=== PATIENT | female | born 1940 ===

== ENCOUNTER → 2024-08-02 | Emergency (ER) | payer BC, OTHER ==
[~2024-08-02] MED LIST: ACETAMINOPHEN 500 MG TAB ONE; ASPIRIN 325 MG TAB ONE; ATROPINE SULF 1 MG/10 ML SYR IV ONE; CLOPIDOGREL 75 MG TABLET ONE; DIAZEPAM 2 MG TABLET ONE; DILTIAZEM HCL 60 MG TAB PO ONE; ENOXAPARIN 40 MG/0.4 ML SQ ONE; FENTANYL CITR 100 MCG/2 ML ONE; HEPA 1000U/500MLS 2,000 UNIT/1,000 ML BAG IV ONE; HEPARIN 10,000 UNIT/10 ML VIAL IV ONE; HEPARIN 5000 UNIT/ML 1 ML VIAL ONE; LIDOCAINE 1% 20 ML MDV ONE; MIDAZOLAM HCL 2 MG/2 ML INJ ONE; MORPHINE 2 MG/ML SYR ONE; NA CHLORIDE 0.9% 1,000 ML ONE; NA CHLORIDE 0.9% 100 ML ONE; NA CHLORIDE 0.9% 500 ML ONE; NITROGLYCERIN/D5W 50 MG/250 ML BTL IV ONE; NOREPINEPHRINE BITARTRATE/D5W 4 MG/250 ML KIT IV ONE; ONDANSETRON 4 MG/2 ML VIAL ONE; Phenylephrine HCl 10 MG/ML 1 ML VIAL ONE; TICAGRELOR 90 MG TABLET PO ONE; dilTIAZem HCL 25 MG/5 ML VIAL IV ONE
[2024-08-02 06:31] LABS: Absolute Basophils 0.1 K/uL (0-0.5); Absolute Lymphocytes (CBC) 2.1 K/uL (0.7-4.9); Absolute Monocytes 0.5 K/uL (0.1-1.3); Absolute Neutrophil 10.5 K/uL (1.8-8.0); Basophils % 0.6 % (0-1.3); Hematocrit 31.1 % (36.0-45.0); Hemoglobin 10.7 g/dL (12.0-15.0); Lymphocytes % 16.1 % (15.3-44.8); MCH 31.7 pg (27.0-35.0); MCHC 34.6 g/dL (32.0-36.0); MCV 91.8 fL (80-100); MPV 8.6 fL (7.6-11.3); Monocytes % 3.8 % (3.3-12.3); Neutrophils % 79.5 % (41.7-73.7); Platelets 468 thou/uL (152-406); RBC Red Blood Cell Count 3.39 M/uL (3.86-4.86); Red Cell Distribution Width 12.7 % (12.1-15.2)
[2024-08-02 06:52] LABS: PT Prothrombin Time 19.8 SECONDS (9.4-12.5); Protime INR 1.9
[2024-08-02 07:37] LABS: ALT/SGPT 34 U/L (13-56); AST/SGOT 74 U/L (15-37); Albumin 2.6 g/dL (3.4-5.0); Albumin/Globulin Ratio 0.7 (1.1-1.8); Alkaline Phosphatase 115 U/L (45-117); Anion Gap 13.6 mEq/L (5.0-15.0); BUN Blood Urea Nitrogen 19 mg/dL (7-18); Bicarbonate 21 mEq/L (21-32); Bilirubin Total 0.3 mg/dL (0.2-1.0); Globulin 3.6 g/dL (2.3-3.5); Glomerular Filtration Rate 45 ml/min (=/>90); Glucose Level 154 mg/dL (74-106); Magnesium 1.8 mg/dL (1.6-2.4); NT PRO-BNP 34474 pg/mL (<450); Potassium 4.6 mEq/L (3.5-5.1); Protein, Total 6.2 g/dL (6.4-8.2); Sodium Level 127 mEq/L (136-145)
[2024-08-02 07:39] LABS: Bilirubin Direct < 0.2 mg/dL (0-0.2); Bilirubin Indirect, Calculated 0.1 mg/dL (0.2-0.8)
[2024-08-02 07:40] LABS: Troponin High Sensitivity 7573.8 pg/mL (<58.9)
--- NOTE | 2024-08-02 08:23 | RAD REPORT ---
EXAM: CTA of the chest, abdomen and pelvis HISTORY: Chest and abdominal pain COMPARISON: None TECHNIQUE: Multiple contiguous axial images were obtained a CTA of the chest and abdomen with contras t per aortic dissection protocol. Sagittal and coronal 3-D MIP reformats were performed. 100 cc Isovue-370 administered intravenously.Automated exposure control, adjustment of the mA and kV accordi ng to the patient size, and iterative reconstruction. Unless otherwise specified, incidental findings do not require dedicated imaging follow-up. FINDINGS: An aortic dissection not seen. No aortic aneurysm Hgppf-wj-cckqltor bilateral pleural effusions with basilar atelectasis. 4 cm right upper lobe opacity extending to the pleura. Smaller additional right upper lobe opacity. 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 SMA and ANTOINE are patent. Renal arteries do not demonstrate a significant abnormality. Cholelithiasis. Gallbladder wall does not appear thickened. Liver has a heterogeneous density. The evaluation is somewhat limited as the arms are down by his yolande e. The pancreas, adrenals, kidneys and bladder do not demonstrate a significant abnormality No evidence of diverticulitis. Spondylosis lumbar spine results in spinal stenosis. No adnexal mass IMPRESSION: No evidence of an aortic dissection Wuodg-hx-vjvcmpbu bilateral pleural effusions Right upper lobe lung opacities probably pneumonia. This should be followed until has cleared to excl ude a postobstructive process/underlying mass. Heterogeneous liver. It is recommended that patient ultrasound for evaluation.
--- NOTE | 2024-08-02 08:34 | RAD REPORT ---
Procedure: Chest Single View HISTORY: Chest pain COMPARISON: none FINDINGS: Patchy right upper lobe opacities Bibasilar atelectasis Small to moderate pleural effusions The heart is moderately enlarged. IMPRESSION: Ucojf-gu-bvybqfnn bilateral pleural effusions Patchy right upper lobe opacities probably pneumonia. This should be followed until has cleared to he lp exclude a postobstructive process/underlying mass
--- NOTE | 2024-08-02 08:46 | EDPHYS ---
Physician Documentation [facility] Name: Jessica Queen Age: 84 yrs Sex: Female : 1940 Arrival Date: 08/02/2024 Time: 06:06 Bed 4 Private MD: ED Physician Alek Davila HPI: 08/02 06:12 This 84 yrs old Female presents to ER via Unassigned with complaints of gen sp4 weakness . 06:23 84-year-old female presents with complaint of generalized weakness discomfort nausea sp4 and also stating she may be dehydrated. Patient states she does not go to the doctor. Historical: - Allergies: 06:52 Tylenol; dd2 06:52 Sulfa (Sulfonamide Antibiotics); dd2 06:52 Latex, Natural Rubber; dd2 - PMHx: 06:52 None; dd2 - PSHx: 06:52 None; dd2 - Immunization history:: Adult Immunizations up to date. - Infectious Disease History:: Denies. - Family history:: not pertinent. - Social history:: Smoking status: Patient denies any tobacco usage or history of. ROS: 06:23 Constitutional: Negative for fever, chills, and weight loss, positive generalized sp4 weakness, positive diffuse discomfort, positive for feeling unwell, positive nausea 06:23 All other systems are negative, Exam: 06:23 Constitutional: This is a well developed, well nourished patient who is awake, alert, sp4 patient is elderly female who is ill-appearing pale appearing but nontoxic. Head/Face: Normocephalic, atraumatic. Eyes: Pupils equal round and reactive to light, extra-ocular motions intact. Lids and lashes normal. Conjunctiva and sclera are not injected. Cornea within normal limits. Periorbital areas with no swelling, redness, or edema. ENT: Nares patent. No nasal discharge, no septal abnormalities noted. Tympanic membranes are normal and external auditory canals are clear. Oropharynx with no redness, swelling, or masses, exudates, or evidence of obstruction, uvula midline. Mucous membranes moist. Neck: Trachea midline, no thyromegaly or masses palpated, and no cervical lymphadenopathy. Supple, full range of motion without nuchal rigidity, or vertebral point tenderness. Chest/axilla: Normal chest wall appearance and motion. Nontender with no deformity. No lesions are appreciated. Cardiovascular: Irregularly irregular tachycardia, no murmurs, or rubs. Normal PMI, no JVD. No pulse deficits. Respiratory: Lungs have equal breath sounds bilaterally, clear to auscultation and percussion. No rales, rhonchi or wheezes noted. No increased work of breathing, no retractions or nasal flaring. Abdomen/GI: Soft, with normal bowel sounds. No distension or tympany. No guarding or rebound. No evidence of tenderness throughout. Back: No spinal tenderness. No costovertebral tenderness. Skin: Warm, dry with normal turgor. Normal color with no rashes, no lesions, and no evidence of cellulitis. MS/ Extremity: Pulses equal, no cyanosis. Neurovascular intact. Full, normal range of motion. Neuro: Awake and alert, GCS 15, oriented to person, place, time, and situation. Cranial nerves II-XII grossly intact. Motor strength 5/5 in all extremities. Sensory grossly intact. Psych: Awake, alert, with orientation to person, place and time. Behavior, mood, and affect are within normal limits 06:23 ECG was reviewed by the Attending Physician. EKG at 06:18 atrial fibrillation with RVR. EKG reveals atrial fibrillation at the rate of [address] depressions leads V1, V2, V3 Vital Signs: 06:51 BP 112 / 95; Pulse 104; Resp 17; Temp 98.5; Pulse Ox 95% on R/A; Weight 84.82 kg; Pain dd2 10/10; 09:44 BP 91 / 56; Pulse 85; Resp 16; Pulse Ox 95% ; bp 06:51 Pain Scale: Adult dd2 NIH Stroke Scale Scores: 06:23 NIHSS Score: 0 sp4 Monica Coma Score: 06:23 Eye Response: spontaneous(4). Motor Response: obeys commands(6). Verbal Response: sp4 oriented(5). Total: 15. 06:59 Eye Response: spontaneous(4). Motor Response: obeys commands(6). Verbal Response: dd2 oriented(5). Total: 15. MDM: 06:15 Medical Screening Exam initiated sp4 06:33 Differential Diagnosis altered mental status, sepsis, flu, Arrhythmia. Data reviewed: sp4 vital signs, nurses notes, lab test result(s), EKG, radiologic studies, plain films. Consideration of Admission/Observation Patient was admitted/placed on observation. Escalation of care including admission/observation considered. Transition of care: After a detail discussion of the patient's case, care is transferred to Alek Davila DO. 07:49 ED course: Patient care/ report received from Dr Salazar. Patient with widened ms3 mediastinum, a fib RVR. Pending CT aorta.. 07:53 Transition of care: Care assumed from Iker Salazar MD. ms3 08:11 ED course: Discussed case with Dr Wilson and he will see patient.. ms3 08:26 Management of patient was discussed with the following: Hospitalist: Dr Funk- Patient ms3 may need transfer as ICU beds not available.. 09:00 ED course: Discussed resuscitation wishes with patient and her son, Alex Botello. Patient ms3 wishes to be DNR.. 09:21 ED course: Dr Wilson has seen patient and will take patient to the [facility]. ms3 09:30 I considered the following discharge prescriptions or medication management in the ms3 emergency department Medications were administered in the Emergency Department. See MAR. Independent interpretation of the following test(s) in the Emergency Department EKG: See my EKG interpretation above. Counseling: I had a detailed discussion with the patient and/or guardian regarding the historical points, exam findings, and any diagnostic results supporting the discharge/admit diagnosis, lab results, radiology results, the need for further work-up and treatment in the hospital. 20:29 ED course: CTA follow up - FINDINGS: An aortic dissection not seen. No aortic aneurysm sp4 Wsinx-oh-nnqzncwp bilateral pleural effusions with basilar atelectasis. 4 cm right upper lobe opacity extending to the pleura. Smaller additional right upper lobe opacity. 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 SMA and ANTOINE are patent. Renal arteries do not demonstrate a significant abnormality. Cholelithiasis. Gallbladder wall does not appear thickened. Liver has a heterogeneous density. The evaluation is somewhat limited as the arms are down by his side. The pancreas, adrenals, kidneys and bladder do not demonstrate a significant abnormality No evidence of diverticulitis. Spondylosis lumbar spine results in spinal stenosis. No adnexal mass IMPRESSION: RADIOLOGY SERVICES REPORT (Continued) Name: JESSICA QUEEN CC: NONE; Iker Salazar MD, LANETTE BROOKS / Report: [id number] Radiology Services Report Page 2 of 2 No evidence of an aortic dissection Rdcns-da-utlnuzap bilateral pleural effusions Right upper lobe lung opacities probably pneumonia. This should be followed until has cleared to exclude a postobstructive process/underlying mass. Heterogeneous liver. It is recommended that patient ultrasound for evaluation. . 08/02 06:13 Order name: Basic Metabolic Panel; Complete Time: 07:41 sp4 08/02 06:13 Order name: CBC with Diff; Complete Time: 07:11 sp4 08/02 06:13 Order name: LFT's; Complete Time: 07:41 sp4 08/02 06:13 Order name: Magnesium; Complete Time: 07:41 sp4 08/02 06:13 Order name: NT PRO-BNP; Complete Time: 07:41 sp4 08/02 06:13 Order name: PT-INR; Complete Time: 07:11 sp4 08/02 06:13 Order name: Troponin HS; Complete Time: 07:41 sp4 08/02 06:14 Order name: Influenza Screen (a \T\ B); Complete Time: 07:11 sp4 08/02 06:14 Order name: CRP; Complete Time: 07:41 sp4 08/02 06:14 Order name: TSH; Complete Time: 07:41 sp4 08/02 06:28 Order name: T4 Free; Complete Time: 07:41 EDMS 08/02 08:46 Order name: Blood Culture Adult (2) ms3 08/02 08:46 Order name: Lactate w/ 2H reflex if indic. ms3 08/02 08:46 Order name: Ptt, Activated ms3 08/02 06:13 Order name: XRAY Chest (1 view); Complete Time: 08:43 sp4 08/02 07:59 Order name: Angio Aorta For Dissection; Complete Time: 08:43 EDMS 08/02 06:13 Order name: Cardiac monitoring; Complete Time: 06:40 sp4 08/02 06:13 Order name: EKG - Nurse/Tech; Complete Time: 06:40 sp4 08/02 06:13 Order name: IV Saline Lock; Complete Time: 06:40 sp4 08/02 06:13 Order name: Labs collected and sent; Complete Time: 06:40 sp4 08/02 06:13 Order name: O2 Per Protocol; Complete Time: 06:40 sp4 08/02 06:13 Order name: O2 Sat Monitoring; Complete Time: 06:40 sp4 08/02 08:46 Order name: Accucheck; Complete Time: 09:39 ms3 08/02 08:46 Order name: IV Saline Lock - Large Bore; Complete Time: 09:39 ms3 08/02 08:46 Order name: Vital Signs; Complete Time: 09:39 ms3 EC:18 Rate is 123 beats/min. Rhythm is irregularly irregular, A fib. QRS [place] is Normal. ST sp4 Segment is depressed in leads V1, V2, V3, 2-5mm. Clinical impression: Atrial Fibrillation and Cardiac ischemia. Interpreted by me. Reviewed by me. Administered Medications: 08:31 Discontinued: ns 0.9% 1000 ml IV at 125 ml/hr Per protocol; to be given as a bolus over ko1 60 minutes 08:15 Discontinued: diltiazem 5 mg/hr IV at calculated rate See Administration Instructions; ms3 (standard dilution 125 mg diltiazem mixed in 125 mL NS; final concentration 1mg/mL). Recommended max rate 15 mg/hr; Titrate 5 mg/hr as often as every 15 minutes to achieve goal (see titration policy); Goal parameter HR less than 100 bpm 06:39 Drug: Diltiazem IVP 10 mg IVP once; Over 2 minutes Route: IVP; Site: right antecubital; bm8 09:45 Follow up: Response: No adverse reaction bp 06:39 Drug: Diltiazem IV 5 mg/hr IV at calculated rate See Administration Instructions; bm8 (standard dilution 125 mg diltiazem mixed in 125 mL NS; final concentration 1mg/mL). Recommended max rate 15 mg/hr; Titrate 5 mg/hr as often as every 15 minutes to achieve goal (see titration policy); Goal parameter HR less than 100 bpm Route: IV; Rate: calculated rate; Site: right antecubital; 06:39 CANCELLED (Physician Discretion): diazepam2 mg PO once sp4 06:40 Drug: NS 0.9% IV 1000 ml IV at 125 ml/hr Per protocol; to be given as a bolus over 60 bm8 minutes Route: IV; Rate: 125 ml/hr; Site: right antecubital; 06:40 Drug: morphine IVP or IV 2 mg IVP once over 4 mins Route: IVP; Infused Over: 4 mins; bm8 Site: right antecubital; 09:32 Follow up: Response: No adverse reaction; Pain is decreased; RASS: Alert and Calm (0) ll1 06:40 Drug: Ondansetron IVP 4 mg IVP once; over 2 minutes Route: IVP; Site: right antecubital;bm8 09:32 Follow up: Response: No adverse reaction ll1 06:50 Not Given (Patient Refused): [id number] mg PO once dd2 07:32 Drug: Diazepam PO 2 mg PO once Route: PO; ko1 08:05 Follow up: Response: No adverse reaction ko1 07:33 Drug: Enoxaparin Sub-Q 1 mg/kg Sub-Q once Route: Sub-Q; Site: right lower abdomen; ko1 08:04 Follow up: Response: No adverse reaction ko1 07:42 Drug: Diltiazem PO 30 mg PO once Route: PO; ko1 09:32 Follow up: Response: No adverse reaction ll1 Disposition Summary: 08/02/24 09:15 Hospitalization Ordered Notes: Hospitalization Status: Inpatient Admission ms3 Provider: Brooklyn Funk ms3 Location: Intensive Care Unit ms3 Condition: Stable(08/02/24 09:15) ms3 Problem: new(08/02/24 09:15) ms3 Symptoms: are unchanged(08/02/24 09:15) ms3 Bed/Room Type: Standard ms3 Room Assignment: ms3 Diagnosis - Subsequent non-ST elevation (NSTEMI) myocardial infarction(08/02/24 09:15) ms3 - Hypo-osmolality and hyponatremia(08/02/24 09:15) ms3 - Unspecified atrial fibrillation ms3 - Other pneumonia, unspecified organism(08/02/24 09:15) ms3 Forms: - Medication Reconciliation Form ms3 - SBAR form ms3 - Leadership Thank You Letter ms3 Critical care time excluding procedures: 06:34 Critical care time: Bedside Care: 36 minutes, Consultation: 12 minutes, Family sp4 Intervention: 12 minutes. Total time: 60 minutes 09:21 Critical care time: Bedside Care: 30 minutes, Consultation: 5 minutes, Family ms3 Intervention: 10 minutes. Total time: 45 minutes NIH Stroke Scale - NIH Stroke Score Date: 08/02/2024 Time: 06:23 Total Score = 0 10. Dysarthria (speech clarity - read or repeat words) - 0(Normal) 11. Extinction and Inattention (visual/tactile/auditory/spatial/personal) - 0(No abnormality) 1a. Level of Consciousness (LOC) - 0(Alert) 1b. Level of Consciousness (LOC) (Month \T\ Age) - 0(Both) 1c. LOC Commands (Open \T\ Closes Eyes/Culinary Director) - 0(Both) 2. Best Gaze (Lateral Gaze Paresis) - 0(Normal) 3. Visual Field Loss - 0(No visual loss) 4. Facial Palsy - 0(Normal) 5a. Left Arm: Motor (10-second hold) - 0(No drift) 5b. Right Arm: Motor (10-second hold) - 0(No drift) 6a. Left Leg: Motor (5-second hold - always test supine) - 0(No drift) 6b. Right Leg: Motor (5-second hold - always test supine) - 0(No drift) 7. Limb Ataxia (finger/nose \T\ heel/rbobins - test with eyes open) - 0(Absent) 8. Sensory Loss (pinprick arms/legs/face) - 0(Normal) 9. Best Language: Aphasia (description/naming/reading) - 0(No aphasia) Initials: sp4 Signatures: Dispatcher [employer] EDMS Alek Davila DO DO ms3 Elida Sigala, RN RN ko1 Iker Salazar MD MD sp4 Eligio Her RN RN bm8 MERARI GRIDER RN RN dd2 Paul Vernon RN bp Paulette Sharp RN ll1 Corrections: (The following items were deleted from the chart) 06:13 06:13 Chest Single View+RAD.RAD.BRZ ordered. EDMS EDMS 06:15 06:15 C-REACTIVE PROTEIN+C.LAB.BRZ ordered. EDMS EDMS 06:15 06:15 THYROID STIMULAT HORMONE+C.LAB.BRZ ordered. EDMS EDMS 06:27 06:15 T4 FREE+C.LAB.BRZ ordered. EDMS EDMS 06:28 06:15 SARS-COV-2 Antigen Rapid+I.LAB.BRZ ordered. EDMS EDMS 06:39 06:39 Diazepam PO 2 mg PO once ordered. sp4 sp4 07:59 07:12 Chest Abdomen Pelvis W Con+CT.RAD.BRZ ordered. EDMS EDMS 08:47 08:47 BLOOD CULTURE*+BA.LAB.BRZ ordered. EDMS EDMS 08:47 08:47 COMPREHENSIVE METABOLIC PANEL+C.LAB.BRZ ordered. EDMS EDMS 08:47 08:47 LACTATE+C.LAB.BRZ ordered. EDMS EDMS 08:47 08:47 PTT, ACTIVATED+COAG.LAB.BRZ ordered. EDMS EDMS 09:10 08:45 Dr ms3 ms3 09:10 08:45 [facility] ms3 ms3 09:10 08:45 Higher level of care ms3 ms3 09:10 08:45 Stable ms3 ms3 09:10 08:45 new ms3 ms3 09:10 08:45 are unchanged ms3 ms3 09:10 08:45 Subsequent non-ST elevation (NSTEMI) myocardial infarction ms3 ms3 09:10 08:45 Hypo-osmolality and hyponatremia ms3 ms3 09:10 08:45 Other pneumonia, unspecified organism ms3 ms3 09:10 08:45 Heart failure, unspecified ms3 ms3
--- NOTE | 2024-08-02 08:46 | ER ---
Nurse's Notes [facility] Name: Jessica Queen Age: 84 yrs Sex: Female : 1940 Arrival Date: 08/02/2024 Time: 06:06 Bed 4 Private MD: Diagnosis: Subsequent non-ST elevation (NSTEMI) myocardial infarction;Hypo-osmolality and hyponatremia;Unspecified atrial fibrillation;Other pneumonia, unspecified organism Presentation: 08/02 06:52 Chief complaint: EMS states: TONED OUT FOR NAUSEA, BACK PAIN AND DEHYDRATION. PT dd2 REPORTS NAUSEA X2 DAYS, SEVERE BACK PAIN AND WEAKNESS. Coronavirus screen: At this time, the client does not indicate any symptoms associated with coronavirus-19. Ebola Screen: No symptoms or risks identified at this time. Initial Sepsis Screen: Does the patient meet any 2 criteria? No. Patient's initial sepsis screen is negative. Does the patient have a suspected source of infection? No. Patient's initial sepsis screen is negative. Risk Assessment: Do you want to hurt yourself or someone else? Patient reports no desire to harm self or others. Onset of symptoms is unknown. Care prior to arrival: Medication(s) given: Normal saline infusion, 100 ML zofran 4 mg, IV initiated. 20 GA, in the right antecubital area. 06:52 Method Of Arrival: EMS: [facility] dd2 06:52 Acuity: LEONOR 2 dd2 Triage Assessment: 06:52 General: Appears uncomfortable, Behavior is appropriate for age, agitated, anxious. dd2 Pain: Complains of pain in back Pain does not radiate. Pain currently is 10 out of 10 on a pain scale. Quality of pain is described as aching. EENT: No deficits noted. No signs and/or symptoms were reported regarding the EENT system. Neuro: Level of Consciousness is awake, alert, obeys commands, Oriented to person, place, time, situation, Appropriate for age. Cardiovascular: Denies chest pain, Patient's skin is warm and dry. Rhythm is atrial fibrillation with rapid ventricular response. Respiratory: Airway is patent Respiratory effort is even, unlabored, Respiratory pattern is regular, symmetrical, Breath sounds are clear bilaterally. GI: Abdomen is non-distended, Abd is soft and non tender X 4 quads. Reports nausea, vomiting. : No deficits noted. No signs and/or symptoms were reported regarding the genitourinary system. Derm: No deficits noted. No signs and/or symptoms reported regarding the dermatologic system. Musculoskeletal: No deficits noted. No signs and/or symptoms reported regarding the musculoskeletal system. Circulation, motion, and sensation intact. Range of motion: intact in all extremities. Historical: - Allergies: 06:52 Tylenol; dd2 06:52 Sulfa (Sulfonamide Antibiotics); dd2 06:52 Latex, Natural Rubber; dd2 - PMHx: 06:52 None; dd2 - PSHx: 06:52 None; dd2 - Immunization history:: Adult Immunizations up to date. - Infectious Disease History:: Denies. - Family history:: not pertinent. - Social history:: Smoking status: Patient denies any tobacco usage or history of. Screenin:00 Abuse screen: Denies threats or abuse. Nutritional screening: No deficits noted. dd2 Tuberculosis screening: No symptoms or risk factors identified. 09:31 [facility] ED Fall Risk Assessment (Adult) History of falling in the last 3 months, ll1 including since admission No falls in past 3 months (0 pts) Confusion or Disorientation No (0 pts) Intoxicated or Sedated No (0 pts) Impaired Gait Yes (1 pt) Mobility Assist Device Used Yes (1 pt) Altered Elimination Yes (1 pt) Score/Fall Risk Level 3 or more points = High Risk Maintained a safe environment, Hourly rounding (assess needs \T\ fall precautionary measures) done. Assessment: 06:59 Reassessment: SEE TRIAGE ASSESSMENT FOR FULL ASSESSMENT. dd2 09:30 Reassessment: No changes from previously documented assessment. Patient and/or family ll1 updated on plan of care and expected duration. Pain level reassessed. 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 bp Vital Signs: 06:51 BP 112 / 95; Pulse 104; Resp 17; Temp 98.5; Pulse Ox 95% on R/A; Weight 84.82 kg; Pain dd2 10/10; 09:44 BP 91 / 56; Pulse 85; Resp 16; Pulse Ox 95% ; bp 06:51 Pain Scale: Adult dd2 Monica Coma Score: 06:23 Eye Response: spontaneous(4). Motor Response: obeys commands(6). Verbal Response: sp4 oriented(5). Total: 15. 06:59 Eye Response: spontaneous(4). Motor Response: obeys commands(6). Verbal Response: dd2 oriented(5). Total: 15. NIH Stroke Scale Scores: 06:23 NIHSS Score: 0 sp4 ED Course: 06:12 Patient arrived in ED. ss 06:12 Iker Salazar MD is Attending Physician. sp4 06:44 XRAY Chest (1 view) In Process Unspecified. EDMS 06:50 MERARI GRIDER, RN is Primary Nurse. dd2 06:52 Arm band placed on right wrist. 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 EKG completed in triage. Results shown to MD. 06:56 Triage completed. dd2 06:59 Client placed on continuous cardiac and pulse oximetry monitoring. NIBP monitoring dd2 applied. monitoring and evaluation advisor on. 06:59 No provider procedures requiring assistance completed. Initial lab(s) drawn, by ED dd2 staff, sent to lab. EKG done, by ED staff, reviewed by Iker Salazar MD. Maintain EMS IV. Dressing intact. Good blood return noted. Site clean \T\ dry. Gauge \T\ site: 20G RAC. Flushed with 10 mL NS. Patient maintains SpO2 saturation greater than 95% on room air. 07:49 Attending Physician role handed off by Iker Salazar MD ms3 07:49 Alek Davila DO is Attending Physician. ms3 07:59 Angio Aorta For Dissection In Process Unspecified. EDMS 08:43 initiated transfer to [facility]. bd 09:10 transfer cancelled by provider, pt will go to lab assistant here. bd 09:14 Brooklyn Funk MD is Hospitalizing Provider. ms3 09:27 Blood Culture Adult (2) Sent. ko1 09:27 Lactate w/ 2H reflex if indic. Sent. ko1 09:27 Ptt, Activated Sent. ko1 09:28 Initial lab(s) drawn, by me, sent to lab. First set of blood cultures drawn. ko1 09:31 Patient has correct armband on for positive identification. Bed in low position. ll1 Provided Education on: to lab assistant. Client placed on continuous cardiac and pulse oximetry monitoring. NIBP monitoring applied. monitoring and evaluation advisor on. 09:32 Patient admitted, IV remains in place. ll1 Administered Medications: 08:31 Discontinued: ns 0.9% 1000 ml IV at 125 ml/hr Per protocol; to be given as a bolus over ko1 60 minutes 08:15 Discontinued: diltiazem 5 mg/hr IV at calculated rate See Administration Instructions; ms3 (standard dilution 125 mg diltiazem mixed in 125 mL NS; final concentration 1mg/mL). Recommended max rate 15 mg/hr; Titrate 5 mg/hr as often as every 15 minutes to achieve goal (see titration policy); Goal parameter HR less than 100 bpm 06:39 Drug: Diltiazem IVP 10 mg IVP once; Over 2 minutes Route: IVP; Site: right antecubital; bm8 09:45 Follow up: Response: No adverse reaction bp 06:39 Drug: Diltiazem IV 5 mg/hr IV at calculated rate See Administration Instructions; bm8 (standard dilution 125 mg diltiazem mixed in 125 mL NS; final concentration 1mg/mL). Recommended max rate 15 mg/hr; Titrate 5 mg/hr as often as every 15 minutes to achieve goal (see titration policy); Goal parameter HR less than 100 bpm Route: IV; Rate: calculated rate; Site: right antecubital; 06:39 CANCELLED (Physician Discretion): diazepam2 mg PO once sp4 06:40 Drug: NS 0.9% IV 1000 ml IV at 125 ml/hr Per protocol; to be given as a bolus over 60 bm8 minutes Route: IV; Rate: 125 ml/hr; Site: right antecubital; 06:40 Drug: morphine IVP or IV 2 mg IVP once over 4 mins Route: IVP; Infused Over: 4 mins; bm8 Site: right antecubital; 09:32 Follow up: Response: No adverse reaction; Pain is decreased; RASS: Alert and Calm (0) ll1 06:40 Drug: Ondansetron IVP 4 mg IVP once; over 2 minutes Route: IVP; Site: right antecubital;bm8 09:32 Follow up: Response: No adverse reaction ll1 06:50 Not Given (Patient Refused): [id number] mg PO once dd2 07:32 Drug: Diazepam PO 2 mg PO once Route: PO; ko1 08:05 Follow up: Response: No adverse reaction ko1 07:33 Drug: Enoxaparin Sub-Q 1 mg/kg Sub-Q once Route: Sub-Q; Site: right lower abdomen; ko1 08:04 Follow up: Response: No adverse reaction ko1 07:42 Drug: Diltiazem PO 30 mg PO once Route: PO; ko1 09:32 Follow up: Response: No adverse reaction ll1 Medication: 06:59 VIS not applicable for this client. dd2 Outcome: 08:45 ER care complete, transfer ordered by . ms3 09:15 Decision to Hospitalize by Provider. ms3 09:30 Admitted to [facility] accompanied by tech, via stretcher, with chart, ll1 09:30 Condition: stable 09:30 Instructed on the need for admit, 09:48 Patient left the ED. ll1 NIH Stroke Scale - NIH Stroke Score Date: 08/02/2024 Time: 06:23 Total Score = 0 10. Dysarthria (speech clarity - read or repeat words) - 0(Normal) 11. Extinction and Inattention (visual/tactile/auditory/spatial/personal) - 0(No abnormality) 1a. Level of Consciousness (LOC) - 0(Alert) 1b. Level of Consciousness (LOC) (Month \T\ Age) - 0(Both) 1c. LOC Commands (Open \T\ Closes Eyes/Back Feeder Plywood Layup Line) - 0(Both) 2. Best Gaze (Lateral Gaze Paresis) - 0(Normal) 3. Visual Field Loss - 0(No visual loss) 4. Facial Palsy - 0(Normal) 5a. Left Arm: Motor (10-second hold) - 0(No drift) 5b. Right Arm: Motor (10-second hold) - 0(No drift) 6a. Left Leg: Motor (5-second hold - always test supine) - 0(No drift) 6b. Right Leg: Motor (5-second hold - always test supine) - 0(No drift) 7. Limb Ataxia (finger/nose \T\ heel/robbins - test with eyes open) - 0(Absent) 8. Sensory Loss (pinprick arms/legs/face) - 0(Normal) 9. Best Language: Aphasia (description/naming/reading) - 0(No aphasia) Initials: sp4 Signatures: Dispatcher [employer] EDMS Navya Munroe Shelby, RN RN ss Paul Vernon, RN RN bp Paulette Sharp, RN RN ll1 Alek Davila, DO ms3 Elida Sigala, RN RN ko1 Iker Salazar MD MD sp4 Eligio Her RN RN bm8 MERARI GRIDER RN RN dd2 Corrections: (The following items were deleted from the chart) 06:50 06:39 Acetaminophen PO 1000 mg PO bm8 dd2
[2024-08-02 09:52] VITALS: TEMP 98.5; O2SAT 95
[2024-08-02 09:54] VITALS: BP 91/56
--- NOTE | 2024-08-02 09:59 | P.CNS ---
Date of Consult: 08/02/24 Chief Complaint: back pain, arm pain and weakness History of Present Illness: Patient with no significant PMH presented with generalized weakness for the last week, she do not see any doctor, she report upper back pain, and left arm pain, also report SOB and RED, no other symptoms. Home medications list reviewed: Yes Review of Systems 10-point ROS is otherwise unremarkable Physical Examination Temp Pulse Resp BP Pulse Ox 98.5 F 85 16 91/56 L 08/02/24 06:51 08/02/24 09:44 08/02/24 09:44 08/02/24 09:44 General: Alert, In no apparent distress HEENT: Atraumatic, PERRLA, Mucous membr. moist/pink, EOMI, Sclerae nonicteric Neck: Supple, 2+ carotid pulse no bruit, No LAD, Without JVD or thyroid abnorma lity Respiratory: Clear to auscultation bilaterally, Normal air movement Cardiovascular: Irregular heart rate/rhythm Gastrointestinal: Normal bowel sounds, No tenderness Musculoskeletal: No tenderness Integumentary: No rashes Neurological: Normal gait, Normal speech, Normal tone, Normal affect Lymphatics: No axilla or inguinal lymphadenopathy Laboratory Data (last 24 hrs) 08/02/24 08/02/24 08/02/24 09:25 06:15 06:15 WBC 13.20 H Hgb 10.7 L Hct 31.1 L Plt Count 468 H PT 19.8 H INR 1.90 APTT 26.0 Sodium Potassium BUN Creatinine Glucose Magnesium Total Bilirubin AST ALT Alkaline Phosphatase 08/02/24 06:15 WBC Hgb Hct Plt Count PT INR APTT Sodium 127 L Potassium 4.6 BUN 19 H Creatinine 1.18 H Glucose 154 H Magnesium 1.8 Total Bilirubin 0.3 AST 74 H ALT 34 Alkaline Phosphatase 115 - Problems (1) NSTEMI (non-ST elevated myocardial infarction) Current Visit: Yes Status: Acute Plan: patient troponin is significantly elevated with ST depression anterior leads NPO for coronary angiogram ASA 81 mg daily Heparin drip. (2) Atrial fibrillation Current Visit: Yes Status: Acute Plan: new diagnosis, patient BP is soft after getting multiple doses of IV cardizem. Amiodarone 150 mg IV x 1 then continue amiodarone drip. Get Echo
--- NOTE | 2024-08-03 12:16 | EKG ---
Test Date: 2024-08-02 Test Time: 06:18:16 Mate Chief: MIGUEL MEASUREMENT RESULTS: Intervals: Rate: 123 [place]: QRSD: 104 QT: 302 QTc: 432 [place]: P: [place]: QRS: 19 T: 174 INTERPRETIVE STATEMENTS: Atrial fibrillation with rapid ventricular response Anterior infarct, age undetermined Marked ST abnormality, possible inferior subendocardial injury Marked ST abnormality, possible lateral subendocardial injury Abnormal ECG No previous ECG available for comparison Electronically Signed On 08-03-24 12:12:56 TRAIN STATION SERVER by Mino Wilson
--- NOTE | 2024-08-03 14:13 | OP ---
Date of Procedure: 08/02/2024 Surgeon: Mino Wilson Procedures Performed: 1. Selective coronary angiogram. 2. Percutaneous coronary intervention of left circumflex with Synergy 2.5 x 16 mm drug-eluting stent. 3. Percutaneous coronary intervention of the left main to left anterior descending with Synergy 3.0 x 20 mm drug-eluting stent. Indication For Procedure: The patient presented with high-risk [id number] OK, cardiogenic shoc k. Access: Right radial, closed by TR band. Sedation Time: 90 minutes with 50 of fentanyl. Complications: The patient went into cardiac arrest and during the procedure. Estimated Blood Loss: Less than 50 cc. Description Of Procedure: After risks, benefits, and alternatives were explained to the patient, the patient agreed to proceed with the procedure and signed informed consent. The patient was brought b k to the laboratory manager, prepped and draped in sterile fashion. Time-out was performed. Sedation was ad ministered. Next, the right radial access was obtained using ultrasound-guided micropuncture [facility]. [place]auvelt 4 catheter was advanced over a J-wire. Selective angiogram was done using the [place] 4 cat heter. After that, that catheter was exchanged with an XB LAD 3.0 mm Guide. Heparin was administere d. ACT was more than 400. Runthrough wire was passed from the left main into the left circumflex ar charles. Another Runthrough wire was passed across from the left main into the LAD artery. Pre-dilated the left circumflex lesions with NC 2.0, followed by 2.5 mm balloons. Diffuse disease was noticed i nto the left circumflex back all the way to the ostium. The patient started to become hemodynamicall y unstable, so we decided to stent from the ostial left circumflex into the proximal left circumflex, so Synergy 2.5 x 16 mm drug-eluting stent was deployed. After that, we crushed the stent because we saw that there was pinching of the ostial LAD from left main into LAD, so we dilated that with an NC 2.5 mm balloon. Next, Synergy 3.0 x 20 mm drug-eluting stent was placed across the left main into t he LAD, and we re-crossed into the left circumflex and dilation was done with an NC 2.0 mm balloon. Despite those efforts, the patient became hemodynamically unstable. The patient had a code of DNR. The patient went into bradycardia, so multiple atropine and also she was hypotensive, so multiple rou nds of Jair-Synephrine were given. Repeated angiogram showed that there was significant disease in th e left circumflex with a heavy clot burden all across the left circumflex, and there was BUSHRA 0 flow. Another attempt of predilation PTCA was done, but there was no flow. The patient went into cardiac arrest, so we stopped the procedure as the patient has a DNR status. At the end of procedure, wires were removed. Catheter was removed over a J-wire. Sheath was removed. TR band was applied. Findings: 1. Left main, proximally normal. Distally got 80% disease into the ostial LAD. 2. Left circumflex with ostial 100% occluded, most likely subacute. We attempted PCI with Synergy 2. 5 x 16, but there was BUSHRA 0 flow despite multiple attempts of pre-dilatation. 3. Left anterior descending is a very tortuous artery with ostial 80% disease. Proximal to mid diffu se 60% to 80% disease. PCI was done from the left main into the LAD with Synergy 3.0 x 20 mm drug-el uting stent. 4. Right coronary artery, proximal 100% occluded with [id number] collaterals. Assessment: 1. Significant ostial left circumflex disease, status post percutaneous coronary intervention, but go t BUSHRA 0 flow. 2. Significant ostial left anterior descending disease, status post percutaneous coronary interventio n from left main into left anterior descending with Synergy 3.0 x 20 mm drug-eluting stent. 3. Significant mid right coronary artery disease 100% occluded with [id number] collaterals. Plan: The patient had a cardiac arrest during the procedure. The patient's code status was respecte d and she insisted that she will be DNR before the procedure, so we tried chemical help by giving atr opine and Jair-Synephrine, but the patient did not survive the procedure, so the patient was announced at the end of procedure. Family was updated, and they were very respectful and thankful for our efforts to save the patient. BRITTNY/SUSAN Voice ID: [id number] Report ID: [id number]
--- NOTE | 2024-08-11 16:54 | P.SSS ---
Patient History Date of Service: 08/11/24 Reason for admission: back pain, arm pain and weakness History of Present Illness: Patient with no significant PMH presented with generalized weakness for the last week, she do not see any doctor, she report upper back pain, and left arm pain, also report SOB and RED, no other symptoms. Allergies latex Allergy (Unknown, Verified 08/02/24 10:03) Itching/Hives/Rash Home medications list reviewed: Yes - Family History Family History: Reviewed- Non-Contributory Review of Systems is unable to be obtained Physical Examination - Vital Signs Temperature: 98.5 F Blood Pressure: 91/56 Pulse: 85 Respirations: 16 - Physical Exam General: Other (Patient ) - Diagnosis (Problem(s)) (1) NSTEMI (non-ST elevated myocardial infarction) Status: Acute Plan: patient troponin is significantly elevated with ST depression anterior leads Patient was taken to coronary angiogram, patient was found to have severe multivessel CAD, attempt to do PCI of acute occluded LCX and LAD was done but patient decompensated quickly on table, chemical support was attempted with medications as patient code status is DNR was attempted but patient did not make it during procedure and patient had PEA arrest. no CPR done due to code status (2) Atrial fibrillation Status: Acute Plan: Patient - Disposition Disposition: ROUTINE DISCHARGE Followup: NONE,NONE [Primary Care Provider] - Prvt As Needed
== END | disposition home or self-care (01) ==
LOC: ER 06:06
PROC: 027135Z Dilation of Coronary Artery, Two Arteries with Two Drug-eluting Intraluminal Devices, Percutaneous Approach (ICD-10-PCS; principal; 2024-08-02)
PROC: B2111ZZ Fluoroscopy of Multiple Coronary Arteries using Low Osmolar Contrast (ICD-10-PCS; 2024-08-02)
DX: I21.4 Non-ST elevation (NSTEMI) myocardial infarction (principal); I25.10 Atherosclerotic heart disease of native coronary artery without angina pectoris; I25.82 Chronic total occlusion of coronary artery; I97.710 Intraoperative cardiac arrest during cardiac surgery; Y65.8 Other specified misadventures during surgical and medical care; Y92.238 Other place in hospital as the place of occurrence of the external cause; Z66 Do not resuscitate; R57.0 Cardiogenic shock; J18.8 Other pneumonia, unspecified organism; I48.91 Unspecified atrial fibrillation; E87.1 Hypo-osmolality and hyponatremia; E78.5 Hyperlipidemia, unspecified; Z88.2 Allergy status to sulfonamides; Z88.8 Allergy status to other drugs, medicaments and biological substances; Z91.040 Latex allergy status
CPT/HCPCS: 93454; C9600 ×2; 36415; 71045; 71275; 74175; 76937; 80048; 80076; 83605; 83735; 83880; 84439; 84443; 84484; 85025; 85347; 85610; 85730; 86140; 87040; 87804; 93005; 96372; 96374; 96375; 99152; 99153; 99285; C1725; C1877; C1893; C9601; J0461; J1644; J1650; J2003; J2250; J2270; J2371; J2405; J3010; J7030; J7040; Q9967